=== PATIENT | female | born 1990 | race Caucasian/White ===

== ENCOUNTER 2018-01-13 18:57 | Emergency (ER) ==
[2018-01-13 19:05] VITALS: BP 159/101; TEMP 98.6; BMI 25.2
[2018-01-13] MEDS ORDERED: NUBAIN IM STA (20:08)
--- NOTE | 2018-01-13 20:14 | ED.PDOC ---
General ED Provider: Dr. ADAN RIVERA Chief Complaint: Tooth Problem Stated Complaint: pain to right lower tooth Time Seen by Physician: 19:00 Mode of Arrival: Walk-In Information Source: Patient Exam Limitations: No limitations Primary Care Provider: AUGUSTINE FOFANA Nursing and Triage Documentation Reviewed and Agree: No Reviewed sepsis parameters & appropriate labs ordered?: No System Inflammatory Response Syndrome: Not Applicable Sepsis Protocol: For patient's 13 years and over: Temp is 96.8 and below OR 101 and greater Pulse >90 BPM Resp >20/minute Acutely Altered Mental Status Are patient's symptoms suggestive of a new infection, such as: -Pneumonia -Skin, Soft Tissue -Endocarditis -UTI -Bone, Joint Infection -Implantable Device -Acute Abdominal Infection -Wound Infection -Meningitis -Blood Stream Catheter Infection -Unknown System Inflammatory Response Syndrome: Not Applicable EENT Complaint Exam - Dental/Oral Complaint/Exam Mechanism of Injury: No known trauma Onset/Duration: 3 days Symptoms Are: Still present Timing: Constant Initial Severity: Moderate Current Severity: Severe Location: Right lower Character: Reports: Aching, Throbbing Aggravating: Reports: Chewing Associated Signs and Symptoms: Reports: Swelling, Foul odor, Foul taste in mouth Related History: Reports: Similar episode Cardiac Risk Factors: Reports: None Dental/Oral Surgical History: Reports: None Tooth Findings: Present: Gross decay, Gross caries Cervical Lymphadenopathy Present: No Facial Swelling Present: No Bleeding Present: No Oropharynx Findings: Absent: Clots, Active bleeding Septal Hematoma: No Foreign Body Present: No Dysphagia Present: No Drooling Present: No Asymmetrical Tonsillar Swelling Present: No Uvula Midline: No Rosalinda-tonsillar Fluctuence: No Trismus Present: No Palatal Petechiae Present: No Scarlatinaform Rash Present: No Differential Diagnoses: Dental Abcess, Dental Caries, Fractured Tooth Review of Systems - Review Of Systems Constitutional: Reports: No symptoms Ears, Nose, Mouth, Throat: Reports: Mouth pain : Reports: No symptoms Musculoskeletal: Reports: No symptoms Skin: Reports: No symptoms Neurological: Reports: No symptoms Hematologic/Lymphatic: Reports: No symptoms All Other Systems: Reviewed and Negative Past Medical History - Past Medical History Previously Healthy: Yes Endocrine: Reports: None Cardiovascular: Reports: None Respiratory: Reports: None Hematological: Reports: None Gastrointestinal: Reports: None Genitourinary: Reports: None Neuro/Psych: Reports: None Musculoskeletal: Reports: None Cancer: Reports: None Last Menstrual Period: 2 weeks ago - Surgical History General Surgical History: Reports: Cholecystectomy, Orthopedic (WRIST,FOOT ), Other (EAR TUBES) - Family History Family History: Reports: Unknown - Social History Smoking Status: Current every day smoker, Heavy tobacco smoker Hx Substance Use: No Alcohol Screening: Occasionally Physical Exam - Physical Exam Appearance: Ill-appearing Ill-appearing: Moderate Pain Distress: Severe Neck: Supple Respiratory: Airway patent, Breath sounds clear, Breath sounds equal, Respirations nonlabored Cardiovascular: Tachycardia GI/: Soft, Nontender, No masses, Bowel sounds normal, No Organomegaly Musculoskeletal: Normal strength, ROM intact, No edema, No calf tenderness Skin: Warm, Dry, Normal color Neurological: Alert, Oriented Psychiatric: Anxious Critical Care Note - Critical Care Note Total Time (mins): 0 Course - Course Orders, Labs, Meds: Orders Category Date Time Status Nalbuphine HCl [Nubain] MEDS 01/13/18 20:08 Stat 10 mg IM ONCE STA Vital Signs: Temp Pulse Resp BP Pulse Ox 01/13/18 18:58 98.6 F 130 H 20 159/101 H 97 Departure - Departure Time of Disposition: 20:30 Disposition: HOME SELF-CARE Discharge Problem: Toothache, Dental caries Instructions: Dental Abscess (ED), Toothache (ED) Condition: Stable Pt referred to PMD for follow-up: Yes IPMP verified?: No Additional Instructions: Take medications as prescribed. Follow up with the dentist in 3 days Prescriptions: Amoxicillin [Amoxil] 500 mg PO TID #30 capsule Ibuprofen [Motrin] 600 mg PO Q6H PRN #30 tablet PRN Reason: Analgesia Tramadol HCl [Ultram] 50 mg PO Q6H PRN #25 tablet PRN Reason: Severe Pain Allergies/Adverse Reactions: Allergies promethazine HCl [From Phenergan] Adverse Reaction (Verified 01/13/18 19:04) Home Medications: Ambulatory Orders Norelgestromin/Ethin.estradiol [Xulane Patch] 1 each TD DIRECTED 05/11/15 Amoxicillin [Amoxil] 500 mg PO TID #30 capsule 01/13/18 Ibuprofen [Motrin] 600 mg PO Q6H PRN #30 tablet 01/13/18 Tramadol HCl [Ultram] 50 mg PO Q6H PRN #25 tablet 01/13/18 Disposition Discussed With: Patient
== END 2018-01-13 20:35 | disposition home or self-care (01) ==
LOC: ED 18:57
DX: K08.89 Other specified disorders of teeth and supporting structures (principal); K02.7 Dental root caries; F17.210 Nicotine dependence, cigarettes, uncomplicated
CPT/HCPCS: 96372; 99282

== ENCOUNTER 2018-06-21 17:26 | Emergency (ER) ==
[2018-06-21 17:31] VITALS: BP 149/98; TEMP 98.6; BMI 25.7
[2018-06-21] MEDS ORDERED: BENADRYL IM STA (17:49)
[2018-06-21] MEDS ORDERED: DECADRON 4 MG/ML SDV IM STA (17:49)
--- NOTE | 2018-06-21 17:49 | ED.PDOC ---
General ED Provider: Dr. YANETH WYATT Chief Complaint: Rash Stated Complaint: rash bilateral hands Time Seen by Physician: 17:30 (see photos seen with Jacque asher ) Mode of Arrival: Walk-In Information Source: Patient, Family Exam Limitations: No limitations Primary Care Provider: AUGUSTINE FOFANA Nursing and Triage Documentation Reviewed and Agree: Yes Does patient meet sepsis criteria?: No If yes, has appropriate treatment been initiated?: No System Inflammatory Response Syndrome: Not Applicable (SEE PHOTOS) Sepsis Protocol: For patient's 13 years and over: Temp is 96.8 and below OR 101 and greater Pulse >90 BPM Resp >20/minute Acutely Altered Mental Status Are patient's symptoms suggestive of a new infection, such as: -Pneumonia -Skin, Soft Tissue -Endocarditis -UTI -Bone, Joint Infection -Implantable Device -Acute Abdominal Infection -Wound Infection -Meningitis -Blood Stream Catheter Infection -Unknown Skin Complaint Exam - Skin Rash/Itching Complaint/Exam Onset/Duration: 2 weeks Symptoms Are: Still present Initial Severity: Severe Current Severity: Severe Potential Exposures: Reports: Unknown Aggravating: Reports: None Alleviating: Reports: None Related History: Similar episode Skin Findings: Present: Urticaria, Target lesions, Vesicles Differential Diagnoses: Allergic Reaction, Contact Dermatitis, Poison Britta/[place] Review of Systems - Review Of Systems Constitutional: Reports: No symptoms Eyes: Reports: No symptoms Ears, Nose, Mouth, Throat: Reports: No symptoms Respiratory: Reports: No symptoms Cardiac: Reports: No symptoms GI: Reports: No symptoms : Reports: No symptoms Musculoskeletal: Reports: No symptoms Skin: Reports: Rash (see photos) Neurological: Reports: No symptoms Endocrine: Reports: No symptoms Hematologic/Lymphatic: Reports: No symptoms All Other Systems: Reviewed and Negative Past Medical History - Past Medical History Previously Healthy: Yes Endocrine: Reports: None Cardiovascular: Reports: None Respiratory: Reports: None Hematological: Reports: None Gastrointestinal: Reports: None Genitourinary: Reports: None Neuro/Psych: Reports: None Musculoskeletal: Reports: None Cancer: Reports: None Last Menstrual Period: just finished - Surgical History General Surgical History: Reports: Cholecystectomy, Orthopedic (WRIST,FOOT ), Other (EAR TUBES) - Family History Family History: Reports: Unknown - Social History Smoking Status: Current every day smoker, Heavy tobacco smoker Hx Substance Use: No Alcohol Screening: Occasionally Physical Exam - Physical Exam Appearance: Well-appearing, No pain distress, Well-nourished Eyes: AMI, EOMI, Conjunctiva clear ENT: Ears normal, Nose normal, Oropharynx normal Respiratory: Airway patent, Breath sounds clear, Breath sounds equal, Respirations nonlabored Cardiovascular: RRR, Pulses normal, No rub, No murmur GI/: Soft, Nontender, No masses, Bowel sounds normal, No Organomegaly Musculoskeletal: Normal strength, ROM intact, No edema, No calf tenderness Skin: Warm, Dry (rash as noted in the photos) Neurological: Sensation intact, Motor intact, Reflexes intact, Cranial nerves intact, Alert, Oriented Psychiatric: Affect appropriate, Mood appropriate Re-Evaluation - Re-Evaluation Time of Re-Evaluation: 18:13 (Jacque asher RN PRESENT) Status: Unchanged Vital Signs Stable: Yes Pain Level: 0 Appearance: NAD Lungs: Clear Skin: Warm and Dry Neuro: Alert and Oriented X3 CV: RRR Critical Care Note - Critical Care Note Total Time (mins): 0 Course - Course Orders, Labs, Meds: Orders Category Date Time Status Dexamethasone 4 mg/ml Inj [Decadron 4 mg/ml Sdv] MEDS 06/21/18 17:49 Stat 8 mg IM ONCE STA Diphenhydramine Inj [Benadryl] MEDS 06/21/18 17:49 Stat 25 mg IM ONCE STA Famotidine [Pepcid] MEDS 06/21/18 17:50 Ordered 20 mg PO QDAC PRN Hydroxyzine HCl [Atarax] MEDS 06/21/18 17:50 Stat 25 mg PO ONCE STA Medications Generic Name Dose Route Start Last Admin Trade Name Freq PRN Reason Stop Dose Admin Famotidine 20 mg 06/21/18 17:50 Pepcid PO QDAC PRN Heartburn Discontinued Medications Generic Name Dose Route Start Last Admin Trade Name Freq PRN Reason Stop Dose Admin Dexamethasone Sodium Phosphate 8 mg 06/21/18 17:49 Decadron 4 Mg/Ml Sdv IM 06/21/18 17:50 ONCE STA Diphenhydramine HCl 25 mg 06/21/18 17:49 Benadryl IM 06/21/18 17:50 ONCE STA Hydroxyzine HCl 25 mg 06/21/18 17:50 Atarax PO 06/21/18 17:51 ONCE STA Vital Signs: Temp Pulse Resp BP Pulse Ox 06/21/18 17:26 98.6 F 93 H 20 149/98 H 99 Departure - Departure Time of Disposition: 18:12 Disposition: HOME SELF-CARE Discharge Problem: Pruritic rash Instructions: Acute Rash (ED), Dermatitis (ED), Poison Britta (ED) Condition: Good Pt referred to PMD for follow-up: Yes IPMP verified?: No Additional Instructions: Please call your Family Physician as soon as possible to schedule a follow-up appointment. Allergies/Adverse Reactions: Allergies promethazine HCl [From Phenergan] Adverse Reaction (Verified 06/21/18 17:33) Home Medications: Ambulatory Orders Norelgestromin/Ethin.estradiol [Xulane Patch] 1 each TD DIRECTED 05/11/15
[2018-06-21] MEDS ORDERED: ATARAX PO STA (17:50)
[2018-06-21] MEDS ORDERED: PEPCID PO PRN (17:50)
[2018-06-21] MEDS ORDERED: PEPCID ONE (18:14)
== END 2018-06-21 18:49 | disposition home or self-care (01) ==
LOC: ED 17:26
DX: R21 Rash and other nonspecific skin eruption (principal); L29.9 Pruritus, unspecified; F17.210 Nicotine dependence, cigarettes, uncomplicated
CPT/HCPCS: 96372; 99282